=== PATIENT | female | born 1945 | race Caucasian/White ===

== ENCOUNTER 2018-10-04 16:03 | Emergency (ER) | payer OTHER ==
[~2018-10-04] VITALS: Ht 165.1 cm; Wt 72.6 kg
[2018-10-04 16:08] VITALS: BP_SYST 190
[2018-10-04 17:09] LABS: BASOPHILS % (AUTO) 0.7 % (0.0-2.0); EOSINOPHILS # (AUTO) 0.1 K/uL (0.0-0.4); EOSINOPHILS % (AUTO) 2.2 % (0.0-4.0); HEMATOCRIT 43.6 % (36-48); HEMOGLOBIN 13.9 g/dL (12.0-16.0); LYMPHOCYTES # (AUTO) 1.4 K/uL (1.0-5.5); LYMPHOCYTES % (AUTO) 23.7 % (20.5-51.5); MEAN CORPUSCULAR HEMOGLOBIN 27 pg (27-31); MEAN CORPUSCULAR HGB CONC 32 % (32-36); MEAN CORPUSCULAR VOLUME 84 fL (79.0-98.0); MONOCYTES # (AUTO) 0.4 K/uL (0.0-1.0); MONOCYTES % (AUTO) 7.4 % (1.7-9.3); NEUTROPHILS # (AUTO) 3.9 K/uL (1.8-7.7); PLATELET COUNT (AUTO) 263 K/uL (130-430); RED BLOOD CELL COUNT(AUTO) 5.18 MIL/uL (4.2-6.2); RED CELL DISTRIBUTION WIDTH 13.7 % (9.0-15.0); WHITE BLOOD COUNT (AUTO) 5.8 K/uL (4.8-10.8)
[2018-10-04 17:10] LABS: ANION GAP 7 (5-15); CALCIUM 10.1 mg/dL (8.4-11.0); CHLORIDE 102 mmol/L (98-107); CREATININE 0.71 mg/dL (0.55-1.30); GLUCOSE 109 mg/dL (70-99); POTASSIUM 3.8 mmol/L (3.5-5.1); SODIUM SERUM 141 mmol/L (136-145); UREA NITROGEN, BLOOD 5 mg/dL (8-21)
[2018-10-04 17:16] LABS: ALANINE AMINOTRANSFERASE 26 U/L (12-78); ALBUMIN 3.9 g/dL (3.4-4.8); ASPARTATE AMINOTRANSFERASE 27 U/L (10-37); TOTAL BILIRUBIN 0.5 mg/dL (0.0-1.0)
[2018-10-04 17:58] LABS: PROTHROMBIN TIME 10.3 SECS (9.5-12.5)
[2018-10-04 18:00] VITALS: BP_SYST 188
== END 2018-10-04 18:00 | disposition home or self-care (01) ==
LOC: SED 16:03
DX: J70.5 Respiratory conditions due to smoke inhalation (principal); R06.02 Shortness of breath; R03.0 Elevated blood-pressure reading, without diagnosis of hypertension
CPT/HCPCS: 36415; 71045; 80053; 83880; 84484; 85025; 85610-TC; 85730-TC; 93005; 99284

== ENCOUNTER 2022-07-31 01:37 | Emergency (ER) | payer OTHER ==
[~2022-07-31] VITALS: Ht 152.4 cm; Wt 49.9 kg
[2022-07-31] MEDS ORDERED: LIDOCAINE/EPI 1% 1:100000 20 ML VIAL INJ ONE (02:00)
[2022-07-31] MEDS ORDERED: LIDOCAINE/EPI 2% 1:100000 20 ML VIAL INJ ONE ×2 (02:01→02:30)
[2022-07-31 02:03] VITALS: BP_SYST 157
[2022-07-31] MEDS ORDERED: DIPHTH,PERTUSS(ACELL),TET VAC 0.5 ML VIAL (Tdap) I.M. ONE (02:30)
[2022-07-31] MEDS ORDERED: CEPH-548 PO ×2 (03:12)
[2022-07-31] MEDS ORDERED: BACI15OI13 TP (03:12)
[2022-07-31] MEDS ORDERED: BACITRACIN ZINC 15 GM TOPICAL OINTMENT TP SCH (03:15)
[2022-07-31] MEDS ORDERED: BACITRACIN 1 GM OINT TP ONE ×2 (03:15→12:32)
[2022-07-31] MEDS ORDERED: cephALEXin 500 MG CAPSULE PO ONE (03:15)
[2022-07-31] MEDS ORDERED: CEPHALEXIN 250 MG/5 ML, 100 ML BTL PO ONE (03:30)
[2022-07-31] MEDS ORDERED: CEPH250S PO (03:41)
[2022-07-31 03:54] VITALS: BP_SYST 134
== END 2022-07-31 03:53 | disposition home or self-care (01) ==
LOC: SED 01:37
DX: S61.215A Laceration without foreign body of left ring finger without damage to nail, initial encounter (principal); I10 Essential (primary) hypertension; Z79.899 Other long term (current) drug therapy; W23.1XXA Caught, crushed, jammed, or pinched between stationary objects, initial encounter; Y93.89 Activity, other specified; Y92.89 Other specified places as the place of occurrence of the external cause; Y99.8 Other external cause status
CPT/HCPCS: 73140-TC; 90715; 99283

== ENCOUNTER 2022-07-31 11:51 | Emergency (ER) | payer OTHER ==
[~2022-07-31] VITALS: Ht 162.6 cm; Wt 51.3 kg
[~2022-07-31 11:51] MED LIST: BACI15OI13 TP; CEPH-548 PO; CEPH250S PO
[2022-07-31 12:02] VITALS: BP_SYST 139
[2022-07-31 13:35] VITALS: BP_SYST 139
== END 2022-07-31 13:36 | disposition home or self-care (01) ==
LOC: SED 11:51
DX: Z48.00 Encounter for change or removal of nonsurgical wound dressing (principal); Z79.899 Other long term (current) drug therapy
CPT/HCPCS: 99281

== ENCOUNTER 2022-10-29 12:44 | Emergency (ER) | payer OTHER ==
[~2022-10-29] VITALS: Ht 162.6 cm; Wt 49.9 kg
[~2022-10-29 12:44] MED LIST changes: -CEPH-548 PO
[2022-10-29 12:45] VITALS: BP_SYST 164
--- NOTE | 2022-10-29 12:45 | NUR ---
Patient triaged and placed in waiting room. VSS and patient appears in no acute distress at this time. Accompanied by DAUGHTER, awaiting available bed, and MD notified of need for MSE.
--- NOTE | 2022-10-29 12:50 | NUR ---
Pt brought by daughter, A&Ox4, pt presents to ER with SOB and weakness for 3 months, skin is pale and dry, respirations even and unlabored, O2 98%, cap refill <3, will cont to monitor.
--- NOTE | 2022-10-29 14:05 | NUR ---
ER Dr.Dela Kwan at bedside examining patient.
[2022-10-29] MEDS ORDERED: NACL 0.9% 1,000 ML IV ONE (15:15)
[2022-10-29 15:17] LABS: BASOPHILS % (AUTO) 0.3 % (0.0-2.0); EOSINOPHILS % (AUTO) 0.1 % (0.0-4.0); HEMATOCRIT 35.8 % (36-48); HEMOGLOBIN 11.6 g/dL (12.0-16.0); LYMPHOCYTES # (AUTO) 0.9 K/uL (1.0-5.5); LYMPHOCYTES % (AUTO) 11.1 % (20.5-51.5); MEAN CORPUSCULAR HEMOGLOBIN 24 pg (27-31); MEAN CORPUSCULAR HGB CONC 33 % (32-36); MEAN CORPUSCULAR VOLUME 75 fL (79.0-98.0); MONOCYTES # (AUTO) 0.5 K/uL (0.0-1.0); MONOCYTES % (AUTO) 6.1 % (1.7-9.3); NEUTROPHILS # (AUTO) 6.9 K/uL (1.8-7.7); NEUTROPHILS % (AUTO) 82.4 % (40.0-70.0); PLATELET COUNT (AUTO) 335 K/uL (130-430); RED CELL DISTRIBUTION WIDTH 14.6 % (9.0-15.0); WHITE BLOOD COUNT (AUTO) 8.4 K/uL (4.8-10.8)
[2022-10-29 15:26] LABS: ANION GAP 9 (5-15); CALCIUM 9.4 mg/dL (8.4-11.0); CHLORIDE 103 mmol/L (98-107); CREATININE 0.64 mg/dL (0.55-1.30); GLUCOSE 121 mg/dL (70-99); UREA NITROGEN, BLOOD 12 mg/dL (8-21)
[2022-10-29 15:34] LABS: ALANINE AMINOTRANSFERASE 17 U/L (12-78); ALBUMIN 3.8 g/dL (3.4-4.8); ASPARTATE AMINOTRANSFERASE 16 U/L (10-37); TOTAL BILIRUBIN 0.3 mg/dL (0.0-1.0)
[2022-10-29 16:01] LABS: BILIRUBIN,URINE NEGATIVE (NEGATIVE); BLOOD, URINE 1+ (NEGATIVE); COLOR,URINE YELLOW (YELLOW); GLUCOSE,URINE NEGATIVE (NEGATIVE); KETONES,URINE NEGATIVE (NEGATIVE); LEUKOCYTE ESTERASE ,URINE 2+ (NEGATIVE); NITRITE, URINE NEGATIVE (NEGATIVE); PH,URINE 6.5 (5.0-8.0); PROTEIN URINE 1+ (NEGATIVE); UROBILINOGEN,URINE 0.2 (0.2-1.0)
[2022-10-29 16:03] LABS: CLARITY/URINE HAZY (CLEAR)
[2022-10-29 16:21] LABS: BACTERIA,URINE MANY /HPF (None Seen); URINE AMORPHOUS URATE 2+ /HPF (None Seen); WBC,URINE 20-50 /HPF (0-3)
[2022-10-29] MEDS ORDERED: iohexoL 350 mgI/mL, 100 ML INFUS..BTL IV ONE (16:30)
[2022-10-29] MEDS ORDERED: cefTRIAXone 1 GM in D5W 50 ML IV ONE (16:30)
--- NOTE | 2022-10-29 16:34 | NUR ---
Pt off the unit for CT
[2022-10-29] MEDS ORDERED: cefTRIAXone 1 GM VIAL ONE (17:19)
[2022-10-29] MEDS ORDERED: CEPH250S PO (17:29)
[2022-10-29] MEDS ORDERED: ALBMDI INH (17:29)
[2022-10-29] MEDS ORDERED: INHA1EAC52 MC (17:29)
--- NOTE | 2022-10-29 17:42 | NUR ---
Dr Rosales explaining results to patient
[2022-10-29 18:09] VITALS: BP_SYST 164
--- NOTE | 2022-10-29 18:10 | NUR ---
Patient given written and verbal discharge instructions and verbalizes understanding. ER MD discussed with patient the results and treatment provided. Patient in stable condition. ID arm band removed. IV catheter removed intact and dressing applied, no active bleeding. Rx of VENTOLIN MDI AND SPACER AND KEFLEX given. Patient educated on pain management and to follow up with PMD. Pain Scale 0/10. Opportunity for questions provided and answered. Medication side effect fact sheet provided.
== END 2022-10-29 18:09 | disposition home or self-care (01) ==
LOC: SED 12:44
DX: N39.0 Urinary tract infection, site not specified (principal); R06.02 Shortness of breath; R53.1 Weakness; Z79.899 Other long term (current) drug therapy
CPT/HCPCS: 99285; 96365; 71275; 71045; 96361; 80053; 81000; 85025; 85379; 87040; 87086; 84484; 36415; 93005; 76376; Q9967; J0696; J7060; J7030